=== PATIENT | male | born 2000 | race Caucasian/White ===

== ENCOUNTER 2023-09-11 10:13 | Emergency (ER) | payer BC ==
[2023-09-11] MEDS ORDERED: Ondansetron PF 4 MG/2 ML Vial ONE (11:00)
[2023-09-11] MEDS ORDERED: Sodium Chloride 0.9% 1,000 ML ONE (11:01)
[2023-09-11] MEDS ORDERED: Famotidine/PF 20 mg/2ml Vial ONE (11:01)
[2023-09-11 11:37] LABS: #Lymphocytes 1.2 thou/uL (1.20-3.40); #Monocytes 0.3 thou/uL (0.11-0.59); #Neutrophils 5.3 thou/uL (1.40-6.50); %Basophils 0.7 % (0.0-1.0); %Eosinophils 0.2 % (0.0-10.0); %Lymphocytes 16.9 % (21.0-51.0); %Monocytes 4.3 % (0.0-10.0); %Neutrophils 77.9 % (42.0-75.0); Hematocrit 44.3 % (42.0-52.0); Hemoglobin 14.5 g/dL (14.0-18.0); Mean Corpuscular HGB CONC 32.9 g/dL (32.0-36.0); Mean Corpuscular Hemoglobin 30.2 pg (27.0-31.0); Mean Corpuscular Volume 91.9 fl (78.0-98.0); Mean Platelet Volume 9.2 fL (7.4-10.4); Platelet Count 205 10x3/uL (130-400); RBC Distribution Width 11.9 % (11.5-14.5); Red Blood Cell (RBC) Count 4.81 mill/uL (4.70-6.10); White Blood Cell (WBC) Count 6.8 10x3/uL (4.8-10.8)
[2023-09-11 11:51] LABS: ALT (SGPT) 12 U/L (8-55); AST (SGOT) 17 U/L (5-34); Albumin 4.6 g/dL (3.5-5.0); Alkaline Phosphatase 58 U/L (40-110); Anion Gap 16 mmol/L (10-20); BUN (Urea Nitrogen) 11 mg/dL (8.9-20.6); Bilirubin, Total 0.5 mg/dL (0.2-1.2); Calc. Creatinine Clearance 0 mL/min (70-130); Calcium 9.3 mg/dL (7.8-10.44); Carbon Dioxide 23 mmol/L (22-29); Chloride 107 mmol/L (98-107); Estimated GFR 116; Globulin 2.8 g/dL (2.4-3.5); Glucose 95 mg/dL (70-105); Lipase 28 U/L (8-78); Potassium 4.5 mmol/L (3.5-5.1); Protein, Total 7.4 g/dL (6.0-8.3); Sodium 141 mmol/L (136-145)
[2023-09-11 11:52] LABS: Troponin I Less than 0.010 ng/mL (< 0.028)
== END 2023-09-11 12:30 | disposition home or self-care (01) ==
LOC: MADERS 10:13
DX: F41.9 Anxiety disorder, unspecified (principal); R06.02 Shortness of breath; R11.2 Nausea with vomiting, unspecified; F17.220 Nicotine dependence, chewing tobacco, uncomplicated
CPT/HCPCS: 80053; 83690; 84484; 85025; 93005; 96365; 96375; J2405; J7050; S0028

== ENCOUNTER 2023-11-28 10:53 | Emergency (ER) | payer OTHER, BC ==
[2023-11-28] MEDS ORDERED: Ondansetron ODT 4 MG TAB ONE (11:11)
== END 2023-11-28 11:32 | disposition home or self-care (01) ==
LOC: MADERS 10:53
DX: S06.0X0A Concussion without loss of consciousness, initial encounter (principal); S00.83XA Contusion of other part of head, initial encounter; F17.220 Nicotine dependence, chewing tobacco, uncomplicated; Y04.8XXA Assault by other bodily force, initial encounter
CPT/HCPCS: 99283; Q0162